=== PATIENT | male | born 1980 | race Caucasian/White ===

== ENCOUNTER 2017-09-24 17:23 | Emergency (ER) | payer OTHER ==
--- NOTE | 2017-09-24 17:47 | ED ---
Abdominal Pain HPI - General Chief Complaint: Abdominal Pain Stated Complaint: lt sided abd & shoulder pain Time Seen by Provider: 09/24/17 17:38 Source: patient, RN notes reviewed Mode of arrival: ambulatory Limitations: no limitations - History of Present Illness Initial Comments: This a 37-year-old male presents emergency Department chief complaint of left shoulder pain, left-sided abdominal pain. Patient states that started him discomfort 3 days ago states it feels like it's deep inside and has no pain with range of motion of his left shoulder. Patient states it seems to come and go it's slightly better today but is concerned this is still present today. Patient states he has pain when he takes complete deep inspiration. Patient states that he has no history of cardiac disease or pulmonary embolism. Patient states he does not feel short of breath. Denies any calf pain, leg swelling. He states problems have been regular denies any dysuria or hematuria. He states abdominal pain seems to wax and pain. Denies any prior abdominal surgeries. - Related Data Previous Rx's Medication Instructions Recorded Omeprazole 40 mg PO DAILY #14 capsule. 09/24/17 Allergies Allergy/AdvReac Type Severity Reaction Status Date / Time No Known Allergies Allergy Verified 09/24/17 17:27 Review of Systems ROS Statement: Those systems with pertinent positive or pertinent negative responses have been documented in the HPI. ROS Other: All systems not noted in ROS Statement are negative. Past Medical History Past Medical History: No Reported History History of Any Multi-Drug Resistant Organisms: None Reported Past Surgical History: No Surgical Hx Reported Past Psychological History: Anxiety Smoking Status: Current every day smoker Past Alcohol Use History: Occasional Past Drug Use History: Marijuana General Exam Limitations: no limitations General appearance: alert, in no apparent distress Head exam: Present: atraumatic, normocephalic, normal inspection Eye exam: Present: normal appearance, PERRL, EOMI. Absent: scleral icterus, conjunctival injection, periorbital swelling Neck exam: Present: normal inspection, full ROM. Absent: tenderness, meningismus, lymphadenopathy Respiratory exam: Present: normal lung sounds bilaterally. Absent: respiratory distress, wheezes, rales, rhonchi, stridor Cardiovascular Exam: Present: regular rate, normal rhythm, normal heart sounds. Absent: systolic murmur, diastolic murmur, rubs, gallop, clicks GI/Abdominal exam: Present: soft, tenderness (Mild left upper quadrant), normal bowel sounds. Absent: distended, guarding, rebound, rigid, organomegaly (No splenomegaly appreciated) Back exam: Absent: CVA tenderness (R), CVA tenderness (L) Skin exam: Present: warm, dry, intact, normal color. Absent: rash Course Vital Signs 09/24/17 09/24/17 17:24 19:29 Temperature 97.8 F 98.2 F Pulse Rate 76 71 Respiratory 18 16 Rate Blood Pressure 134/79 123/65 O2 Sat by Pulse 100 97 Oximetry Medical Decision Making - Medical Decision Making 37-year-old male presented for a left-sided abdominal pain, shoulder pain. Patient lab work, CT unremarkable. Chest x-ray reviewed EKG unremarkable. This is not cardiac pain in nature. Patient states that there is a left shoulder strain. Patient had CT of the abdomen concern for splenomegaly a though this is not evident on CT is unremarkable. Patient's pain may be related to gastritis. We'll start on and antacids. Return parameters were discussed. - Lab Data Result diagrams: 09/24/17 18:12 09/24/17 18:12 Lab Results 09/24/17 09/24/17 09/24/17 Range/Units 18:00 18:12 18:12 WBC 11.1 H (3.8-10.6) k/uL RBC 5.27 (4.30-5.90) m/uL Hgb 16.6 (13.0-17.5) gm/dL Hct 48.9 (39.0-53.0) % MCV 92.8 (80.0-100.0) fL MCH 31.4 (25.0-35.0) pg MCHC 33.9 (31.0-37.0) g/dL RDW 13.2 (11.5-15.5) % Plt Count 263 (150-450) k/uL Neutrophils % 60 % Lymphocytes % 29 % Monocytes % 6 % Eosinophils % 2 % Basophils % 1 % Neutrophils # 6.7 (1.3-7.7) k/uL Lymphocytes # 3.2 (1.0-4.8) k/uL Monocytes # 0.7 (0-1.0) k/uL Eosinophils # 0.2 (0-0.7) k/uL Basophils # 0.1 (0-0.2) k/uL D-Dimer (<0.60) mg/L FEU Sodium 143 (137-145) mmol/L Potassium 4.0 (3.5-5.1) mmol/L Chloride 105 (98-107) mmol/L Carbon Dioxide 24 (22-30) mmol/L Anion Gap 14 mmol/L BUN 11 (9-20) mg/dL Creatinine 0.84 (0.66-1.25) mg/dL Est GFR (CKD-EPI)AfAm >90 (>60 ml/min/1.73 sqM) Est GFR (CKD-EPI)NonAf >90 (>60 ml/min/1.73 sqM) Glucose 88 (74-99) mg/dL Calcium 10.0 (8.4-10.2) mg/dL Total Bilirubin 1.0 (0.2-1.3) mg/dL AST 19 (17-59) U/L ALT 19 L (21-72) U/L Alkaline Phosphatase 54 (38-126) U/L Troponin I (0.000-0.034) ng/mL Total Protein 7.3 (6.3-8.2) g/dL Albumin 4.6 (3.5-5.0) g/dL Amylase 69 (30-110) U/L Lipase 124 (23-300) U/L Urine Color Yellow Urine Appearance Clear (Clear) Urine pH 6.0 (5.0-8.0) Ur Specific Chandler 1.008 (1.001-1.035) Urine Protein Negative (Negative) Urine Glucose (UA) Negative (Negative) Urine Ketones Negative (Negative) Urine Blood Negative (Negative) Urine Nitrite Negative (Negative) Urine Bilirubin Negative (Negative) Urine Urobilinogen <2.0 (<2.0) mg/dL Ur Leukocyte Esterase Negative (Negative) Heterophile Antibody (Negative) 09/24/17 09/24/17 09/24/17 Range/Units 18:12 18:12 18:12 WBC (3.8-10.6) k/uL RBC (4.30-5.90) m/uL Hgb (13.0-17.5) gm/dL Hct (39.0-53.0) % MCV (80.0-100.0) fL MCH (25.0-35.0) pg MCHC (31.0-37.0) g/dL RDW (11.5-15.5) % Plt Count (150-450) k/uL Neutrophils % % Lymphocytes % % Monocytes % % Eosinophils % % Basophils % % Neutrophils # (1.3-7.7) k/uL Lymphocytes # (1.0-4.8) k/uL Monocytes # (0-1.0) k/uL Eosinophils # (0-0.7) k/uL Basophils # (0-0.2) k/uL D-Dimer 0.19 (<0.60) mg/L FEU Sodium (137-145) mmol/L Potassium (3.5-5.1) mmol/L Chloride (98-107) mmol/L Carbon Dioxide (22-30) mmol/L Anion Gap mmol/L BUN (9-20) mg/dL Creatinine (0.66-1.25) mg/dL Est GFR (CKD-EPI)AfAm (>60 ml/min/1.73 sqM) Est GFR (CKD-EPI)NonAf (>60 ml/min/1.73 sqM) Glucose (74-99) mg/dL Calcium (8.4-10.2) mg/dL Total Bilirubin (0.2-1.3) mg/dL AST (17-59) U/L ALT (21-72) U/L Alkaline Phosphatase (38-126) U/L Troponin I <0.012 (0.000-0.034) ng/mL Total Protein (6.3-8.2) g/dL Albumin (3.5-5.0) g/dL Amylase (30-110) U/L Lipase (23-300) U/L Urine Color Urine Appearance (Clear) Urine pH (5.0-8.0) Ur Specific Chandler (1.001-1.035) Urine Protein (Negative) Urine Glucose (UA) (Negative) Urine Ketones (Negative) Urine Blood (Negative) Urine Nitrite (Negative) Urine Bilirubin (Negative) Urine Urobilinogen (<2.0) mg/dL Ur Leukocyte Esterase (Negative) Heterophile Antibody Negative (Negative) Disposition Clinical Impression: Abdominal pain, Left shoulder pain Disposition: HOME SELF-CARE Condition: Stable Instructions: Abdominal Pain (ED) Additional Instructions: Please return to the Emergency Department if symptoms worsen or any other concerns. Prescriptions: Omeprazole 40 mg PO DAILY #14 capsule. Referrals: Evin Bryant DO [Primary Care Provider] - 1-2 days Time of Disposition: 19:36
[2017-09-24 18:31] LABS: Basophils # (A) 0.1 k/uL (0-0.2); Basophils % (A) 1 %; Eosinophils # (A) 0.2 k/uL (0-0.7); Eosinophils % (A) 2 %; HCT 48.9 % (39.0-53.0); HGB 16.6 gm/dL (13.0-17.5); Lymphocytes # (A) 3.2 k/uL (1.0-4.8); Lymphocytes % (A) 29 %; MCH 31.4 pg (25.0-35.0); MCHC 33.9 g/dL (31.0-37.0); MCV 92.8 fL (80.0-100.0); Mean Platelet Volume 7.7; Monocytes # (A) 0.7 k/uL (0-1.0); Monocytes % (A) 6 %; Neutrophils # (A) 6.7 k/uL (1.3-7.7); Neutrophils % (A) 60 %; Platelet Count 263 k/uL (150-450); RBC 5.27 m/uL (4.30-5.90); RDW 13.2 % (11.5-15.5); WBC 11.1 k/uL (3.8-10.6)
--- NOTE | 2017-09-24 18:32 | XR ---
EXAMINATION TYPE: XR KUB DATE OF EXAM: 09/24/2017 COMPARISON: NONE INDICATION: Abdominal pain left shoulder pain TECHNIQUE: Single view abdomen FINDINGS: There is a normal bowel gas pattern. Psoas margins are normal. No organomegaly is present. No free air is present. IMPRESSION: 1. Unremarkable Abdomen
--- NOTE | 2017-09-24 18:33 | XR ---
EXAMINATION TYPE: XR chest 2V DATE OF EXAM: 09/24/2017 COMPARISON: 08/10/2015 INDICATION: Abdominal pain shoulder pain TECHNIQUE: Frontal and lateral views of the chest are obtained. FINDINGS: The heart size is normal. The pulmonary vasculature is normal. The lungs are clear. IMPRESSION: 1. No acute pulmonary process.
[2017-09-24 18:37] LABS: ALT 19 U/L (21-72); AST 19 U/L (17-59); Albumin 4.6 g/dL (3.5-5.0); Alkaline Phosphatase 54 U/L (38-126); Amylase 69 U/L (30-110); Anion Gap 14 mmol/L; Blood Urea Nitrogen 11 mg/dL (9-20); Carbon Dioxide 24 mmol/L (22-30); Chloride 105 mmol/L (98-107); Glucose 88 mg/dL (74-99); Lipase 124 U/L (23-300); Sodium 143 mmol/L (137-145); Total Protein 7.3 g/dL (6.3-8.2)
[2017-09-24 18:42] LABS: Appearance,Urine Clear (Clear); Bilirubin,Urine Negative (Negative); Blood,Urine Negative (Negative); Color,Urine Yellow; Glucose,Urine (UA) Negative (Negative); Ketones,Urine Negative (Negative); Leukocyte Esterase,Urine Negative (Negative); Nitrite,Urine Negative (Negative); Protein,Urine Negative (Negative); Specific Gravity,Urine 1.008 (1.001-1.035); Urobilinogen,Urine <2.0 mg/dL (<2.0)
[2017-09-24] MEDS ORDERED: RX INFO: IV CONTRAST WAS GIVEN 1 EACH MISC MISCELLANE PRN (19:00)
[2017-09-24 19:30] VITALS: BP 123/65; PULSE 71; RESP 16; TEMP 98.2
--- NOTE | 2017-09-24 19:31 | CT ---
EXAMINATION TYPE: CT abdomen pelvis w con DATE OF EXAM: 09/24/2017 COMPARISON: NONE INDICATION: Left lower quadrant and left shoulder pain with nausea. DLP: 531.5 mGycm, Automated exposure control for dose reduction was used. CONTRAST: 100 mL of Isovue 300. Study performed without Oral Contrast TECHNIQUE: Axial images were obtained from above the diaphragm to the pubic rami in the axial plane a t 5 mm thick sections. Reconstructed images are reviewed on the computer in the coronal plane. FINDINGS: Limited CT sections are obtained the lung bases. The lung bases are clear. CT ABDOMEN: Liver: Normal Spleen: Normal Pancreas: Normal Adrenal glands: The adrenal glands are normal. Gallbladder: Normal Kidneys: No masses are evident. No hydronephrosis is present. No cysts are present. Delayed images were obtained through the kidneys, which remain unremarkable. Aorta: Vascular calcification is within the aorta. Inferior vena cava: Normal. CT PELVIS: Loops of bowel within the abdomen and pelvis are normal. No suspicious inflammatory changes are i dentified. No significant diverticuli are evident. Appendix: Normal as visualized. Urinary bladder: Normal. Genitourinary structures: Prostate is unremarkable. Osseous structures: No suspicious lytic or sclerotic lesions. IMPRESSIONS: 1. No suspicious acute changes.
== END 2017-09-24 19:51 | disposition home or self-care (01) ==
LOC: EC 17:23
DX: R10.9 Unspecified abdominal pain (principal); M25.512 Pain in left shoulder; F17.200 Nicotine dependence, unspecified, uncomplicated
CPT/HCPCS: 36415; 93005; 85379; 80053; 82150; 83690; 84484; 85025; 86308; 81003; 71046; 74018; 74177; 99284; Q9967

== ENCOUNTER → 2021-10-21 | Outpatient (CLI) | payer OTHER ==
--- NOTE | 2021-10-22 08:28 | XR ---
Right knee HISTORY: Right knee pain 3 views of the right knee Bone mineralization, joint spaces and alignment are maintained. There is no fracture or dislocation. No evident joint effusion. IMPRESSION: No acute abnormalities evident.
== END | disposition home or self-care (01) ==
LOC: RADXRYALE 16:43
PROVIDERS: ATTEND Physician Assistant
DX: M25.561 Pain in right knee (principal)

== ENCOUNTER → 2023-04-24 | Outpatient (CLI) | payer OTHER ==
--- NOTE | 2023-04-25 08:58 | XR ---
EXAMINATION TYPE: XR chest 2V DATE OF EXAM: 04/24/2023 COMPARISON: 09/24/2017 TECHNIQUE: PA and lateral views submitted. HISTORY: Chest pain FINDINGS: The lungs are clear and there is no pneumothorax, pleural effusion, or focal pneumonia. Heart size normal and no overt failure. Osseous structures intact. IMPRESSION: 1. No acute process.
== END | disposition home or self-care (01) ==
LOC: RADXRYALE 16:35
PROVIDERS: ATTEND Physician Assistant
DX: R07.89 Other chest pain (principal)
CPT/HCPCS: 71046

== ENCOUNTER → 2023-08-25 | Outpatient (CLI) | payer OTHER ==
--- NOTE | 2023-08-26 10:52 | CT ---
EXAMINATION TYPE: CT chest wo/w con DATE OF EXAM: 08/25/2023 COMPARISON: Radiograph 04/24/2023 HISTORY: 43-year-old male R07.81, abnormal weight loss with left side chest pain x 4 months TECHNIQUE: Contiguous axial scanning of the chest before and after the administration of 100 mL of Is ovue 300. Coronal/sagittal reconstructions performed. CT DLP: 499.1mGycm. Automatic exposure control utilized for a dose reduction. FINDINGS: The heart is normal size without pericardial effusion. 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 Lower right paratracheal node measures 7 mm. Right hilar node measures 1.6 cm. Left hilar node measures 1.0 cm. Right bronchial node measures 1.0 cm. No other thoracic lymphadenopathy by CT size criteria. There is mild diffuse bronchial wall thickening. Scattered mild emphysematous change. No consolidatio n or pleural effusion. 5 mm right middle lobe pulmonary nodule, axial image 52. Tiny calcified granuloma anterior medial right base. Visualized upper abdomen shows no gross abnormality. Bones: No osseous destructive process. IMPRESSION: 1. COPD with mild emphysema. 2. Bronchial wall thickening could represent a prominent component of chronic bronchitis versus super imposed acute bronchitis. 3. A 5 mm right middle lobe pulmonary nodule. A one-year follow-up CT can be performed per Fleischner guidelines. 4. A couple borderline and mildly enlarged hilar lymph nodes are probably reactive/post inflammatory. Consider follow-up CT in 3 months to ensure stability/resolution.
== END | disposition home or self-care (01) ==
LOC: RADCTMAIN 16:34
PROVIDERS: ATTEND Family Medicine
DX: R07.81 Pleurodynia (principal); R63.4 Abnormal weight loss; R42 Dizziness and giddiness; J43.9 Emphysema, unspecified; J44.9 Chronic obstructive pulmonary disease, unspecified; R91.1 Solitary pulmonary nodule; R59.0 Localized enlarged lymph nodes; F17.219 Nicotine dependence, cigarettes, with unspecified nicotine-induced disorders
CPT/HCPCS: 71270; Q9967